=== PATIENT | female | born 1990 | race Caucasian/White ===

== ENCOUNTER 2018-12-22 23:16 | Emergency (ER) | payer SELFPAY ==
[~2018-12-22] VITALS: Ht 177.8 cm; Wt 92.0 kg
[2018-12-22 23:32] VITALS: BP 117/76
== END 2018-12-23 02:10 | disposition left against medical advice (07) ==
LOC: ER 23:16
DX: Z53.21 Procedure and treatment not carried out due to patient leaving prior to being seen by health care provider (principal)
CPT/HCPCS: 81025